=== PATIENT | male | born 1935 | race Caucasian/White ===

== ENCOUNTER 2016-08-28 13:51 | Day surgery (SDC) | payer OTHER ==
[~2016-08-28 13:51] MED LIST: BUPIVACAINE/EPI 0.5% 30 ML SDV ONE
[2016-08-28] MEDS ORDERED: LIDOCAINE 1% 5 ML SDV ID PRN (14:03)
[2016-08-28] MEDS ORDERED: LR 1,000 ML IV ONE (14:03)
[2016-08-28] MEDS ORDERED: ceFAZolin 2 GM/DEXTROSE 100 ML IV ONE (14:30)
[2016-08-28] MEDS ORDERED: ACETAMINOPHEN 500 MG TAB PO ONE (14:30)
[2016-08-28] MEDS ORDERED: MIDAZOLAM 2 MG/2 ML VIAL ONE (16:12)
[2016-08-28] MEDS ORDERED: fentaNYL 250 MCG/5 ML INJ ONE (16:20)
[2016-08-28] MEDS ORDERED: PROPOFOL 200 MG/20 ML VIAL ONE (16:20)
[2016-08-28] MEDS ORDERED: LIDOCAINE 2% 5 ML SDV ONE (16:22)
[2016-08-28] MEDS ORDERED: LIDOCAINE 2% JELLY 5 ML TUBE ONE (16:22)
[2016-08-28] MEDS ORDERED: DEXAMETHASONE 4 MG/ML VIAL ONE (16:23)
[2016-08-28] MEDS ORDERED: ONDANSETRON 4 MG/2 ML VIAL ONE (16:23)
[2016-08-28] MEDS ORDERED: PETROLAT,WHT/MIN OIL/SOD CHL 3.5 GM OPHT.OINT ONE (16:47)
--- NOTE | 2016-08-28 19:19 | GOP ---
[f rep st] OPERATIVE REPORT DATE OF OPERATION: 08/28/2016 SURGEON: Kylie Nino MD ANESTHESIA: By LMA. PREOPERATIVE DIAGNOSIS: Left lateral meniscal tear. POSTOPERATIVE DIAGNOSIS: Left lateral meniscal tear with medial meniscal tear and grade 2-3 chondra l changes noted to all 3 compartments. PROCEDURE PERFORMED: Left knee arthroscopy with partial medial and partial lateral meniscectomies, chondroplasty of all 3 compartments. FINDINGS: INDICATIONS: This is an 81-year-old very active male, who has developed increasing pain in the left knee despite conservative measures. MRI exam reveals a fragmented, fibrillated tear of the lateral meniscus. He wishes to have surgery in order to resolve the problem. DESCRIPTION OF PROCEDURE: Patient brought to the operating room after the left side had been identi fied as the correct side by the patient, nurse, and physician. Once in the operating room, he was p laced under general anesthesia using LMA. Once asleep, a tourniquet placed around the upper portion of the left thigh, and both legs were placed in the appropriate leg eddy. The left lower extremi ty was then sterilely prepped and draped in the usual fashion using GSI solution. Once prepped and draped, limb was exsanguinated, tourniquet inflated to 250 mmHg. Incision was made in the superomedial portion of the knee with an inflow trocar introduced without d ifficulty. A second incision was made lateral to the patellar tendon between the inferior pole of t he patella and tibial plateau with the camera introduced without difficulty. Inspection of the joint revealed no loose bodies in the suprapatellar pouch, and the medial and late ral gutter. There was abundant amount of synovium in the anterior portion of the knee and into the medial and lateral gutter. There were grade 2-3 chondral changes noted of the patella and the troch ryan. Further inspection revealed the ACL ligament to be intact. Inspecting the medial compartment revealed a small tear of the anterior horn of the medial meniscus and the posterior horn of the medi al meniscus with some minor grade 2 chondral changes noted. Inspection of the lateral compartment r evealed a tear of the anterior horn of the lateral meniscus along with a large fragmented tear of th e posterior horn and body of the lateral meniscus with some grade 3 chondral changes noted to the la teral compartment. Therefore, a third incision was made medial to the patellar tendon between the inferior pole of the patella and tibial plateau. Then, alternating using the straight biter and a 4.5 mm smooth shaver w as used to debride both tears in the medial and lateral meniscus, remove the chondral changes noted in all 3 compartments. The abundant amount of synovium in the anterior portion of the knee and the medial and lateral gutter was also removed, in addition to the suprapatellar pouch. Once completed, all instruments were removed from the knee with 30 cc of Marcaine infused in the kne e joint. The 3 portal sites were closed using 3-0 nylon suture in a [id number] type stitch. T he wounds were dressed with Xeroform, 4x4, and Webril. Tourniquet was deflated at 34 minutes. Leg was completely undraped in the operating room, was taken out of its leg eddy, tourniquet removed f rom the thigh, and an Dwight wrap placed around the knee. The right leg was taken out of its leg holde r. He was placed supine. He was woken up, extubated, transferred onto a stretcher, and sent to recover y room in good condition. TOURNIQUET TIME: 34 minutes. /[id number]/MODL
== END 2016-08-28 19:00 | disposition home or self-care (01) ==
LOC: FSGY 13:51
PROVIDERS: ATTEND Orthopaedic Surgery
PROC: 0SBD4ZZ Excision of Left Knee Joint, Percutaneous Endoscopic Approach (ICD-10-PCS; principal; 2016-08-28 15:30)
DX: M23.222 Derangement of posterior horn of medial meniscus due to old tear or injury, left knee (principal); M23.252 Derangement of posterior horn of lateral meniscus due to old tear or injury, left knee; M23.212 Derangement of anterior horn of medial meniscus due to old tear or injury, left knee; M23.242 Derangement of anterior horn of lateral meniscus due to old tear or injury, left knee; M25.562 Pain in left knee; M65.9 Synovitis and tenosynovitis, unspecified; M24.10 Other articular cartilage disorders, unspecified site; I49.9 Cardiac arrhythmia, unspecified; K21.9 Gastro-esophageal reflux disease without esophagitis; E78.5 Hyperlipidemia, unspecified; I10 Essential (primary) hypertension; M10.9 Gout, unspecified; F43.10 Post-traumatic stress disorder, unspecified; G62.9 Polyneuropathy, unspecified; Z85.46 Personal history of malignant neoplasm of prostate; Z85.51 Personal history of malignant neoplasm of bladder; Z79.899 Other long term (current) drug therapy
CPT/HCPCS: J0690; J1100; J2250; J2405; J2704; J3010

== ENCOUNTER → 2017-04-01 | Outpatient (CLI) | payer OTHER | LOC: BHFA 14:00 | PROVIDERS: ATTEND Internal Medicine Interventional Cardiology | DX: R00.1 Bradycardia, unspecified (principal) | CPT/HCPCS: 78452; 93017; A9500 ==

== ENCOUNTER 2017-10-09 12:16 | Day surgery (SDC) | payer OTHER ==
[2017-10-09] MEDS ORDERED: IOPAMIDOL (ISOVUE-M 300) 15 ML VIAL ONE (13:17)
[2017-10-09] MEDS ORDERED: DEXAMETHASONE 10 MG/ML VIAL ONE (13:17)
== END 2017-10-09 14:24 | disposition home or self-care (01) ==
LOC: FIMAGING 12:16
PROVIDERS: ATTEND Family Medicine
PROC: 3E0R33Z Introduction of Anti-inflammatory into Spinal Canal, Percutaneous Approach (ICD-10-PCS; principal; 2017-10-09)
PROC: 3E0R3BZ Introduction of Anesthetic Agent into Spinal Canal, Percutaneous Approach (ICD-10-PCS; principal; 2017-10-09)
DX: M54.16 Radiculopathy, lumbar region (principal); M54.41 Lumbago with sciatica, right side; M48.061 Spinal stenosis, lumbar region without neurogenic claudication; M50.30 Other cervical disc degeneration, unspecified cervical region
CPT/HCPCS: J1100; Q9967

== ENCOUNTER 2018-03-22 05:16 | Emergency (ER) | payer OTHER ==
[2018-03-22] MEDS ORDERED: ACETAMINOPHEN 500 MG TAB PO ONE (05:38)
--- NOTE | 2018-03-22 05:41 | EDPHY ---
H & P Stated Complaint: SOB/SOLER/COUGH/CONGESTION/CHEST TIGHTNESS X 1 DAY Time Seen by Provider: 03/22/18 05:29 HPI/ROS: 83-year-old male presents complaining of nasal congestion, postnasal drip, chest tightness, cough that have worsened over the last 2 days. He has not taken anything for his symptoms. No nausea, vomiting or diarrhea. Review of systems As per HPI General no fever no chills no weakness HEENT no eye pain no eye discharge. No eye redness, no sore throat, positive URI /nasal congestion symptoms Respiratory positive cough , no shortness of breath Cardiac no chest pain, no peripheral edema GI no abdominal pain, no diarrhea, no constipation, no nausea, no vomiting no flank pain, no hematuria, no dysuria Musculoskeletal positive myalgias, no joint pain Heme no easy bruising, no easy bleeding Endo no polyuria, no polydipsia Skin no rashes, no pruritus Neuro no syncope, no dizziness, no headaches Psych is no suicidal ideation, no homicidal ideation Source: Patient Exam Limitations: Physical impairment - Personal History Current Tetanus Diphtheria and Acellular Pertussis (TDAP): Yes Tetanus Vaccine Date: unsure - Medical/Surgical History Hx Asthma: No Hx Chronic Respiratory Disease: No Hx Diabetes: No Hx Cardiac Disease: Yes Hx Renal Disease: No Hx Cirrhosis: No Hx Alcoholism: No Hx HIV/AIDS: No Hx Splenectomy or Spleen Trauma: No Other PMH: bladder cancer, and prostate cancer, prostatectomy, appendectomy, hard of hearing, tonsillectomy, hernia, bradycardia, HTN - Family History Significant Family History: No pertinent family hx - Social History Smoking Status: Never smoked Alcohol Use: None Drug Use: None - Physical Exam Exam: 83-year-old male, hard of hearing Alert and oriented nontoxic appearance, no acute distress afebrile Atraumatic normocephalic Extraocular muscles intact, anicteric Nares mild yellowish discharge Oropharynx mild erythema no tonsillar swelling no exudate no uvular deviation, tolerating own secretions Neck supple no lymphadenopathy Lungs clear to auscultation bilaterally Heart regular rate and rhythm Abdomen normoactive bowel sounds soft nontender Extremities no cyanosis clubbing or edema Skin no rash Constitutional: Initial Vital Signs Temperature (C) 36.5 C 03/22/18 05:19 Heart Rate 62 03/22/18 05:19 Respiratory Rate 18 03/22/18 05:19 Blood Pressure 164/107 H 03/22/18 05:19 O2 Sat (%) 94 03/22/18 05:19 O2 Delivery Mode Room Air Allergies/Adverse Reactions: iodine [Iodine] Allergy (Verified 03/22/18 05:19) morphine [Morphine] Allergy (Verified 03/22/18 05:19) IV Contrast Allergy (Uncoded 03/22/18 05:19) Home Medications: Medication Instructions Recorded Gabapentin 300 mg PO TID 05/12/16 Lisinopril 40 mg PO DAILY06 05/12/16 Norvasc 2.5 mg (*) 5 mg PO 06 05/12/16 ACETAMINOPHEN 08/27/16 Atorvastatin Calcium [Lipitor 10 03/22/18 mg (*)] Calcium Carbonate [Calcium] 03/22/18 Donepezil HCl 5 mg PO 03/22/18 Ergocalciferol [Ergocalciferol VIT 03/22/18 D2 8000 UNIT/ML (*)] Melatonin [Melatonin 5 mg] 03/22/18 Medical Decision Making ED Course/Re-evaluation: The patient seen and evaluated for cough, nasal congestion, muscle aches. EKG normal sinus rhythm, no ischemic changes Chest x-ray no dense consolidation, final reading pending Labs CBC pending Lactic acid normal CMP within normal limits Influenza negative Patient given Tylenol 1 g, ibuprofen 600 mg and a DuoNeb. Appears markedly more comfortable. Impression Bronchitis, nasal congestion Plan Discharge home At this time CBC is pending will recontact patient if abnormal. Follow-up with Dr. Foreman this week in 1-2 days Recommend rest, fluids, Mucinex, humidifier in room. Differential Diagnosis: Differential diagnosis considered but not limited to URI, nasal congestion, bronchitis, pneumonia, pneumothorax, myocardial infarction, sinusitis, sinus congestion - Data Points Laboratory Results: 03/22/18 03/22/18 03/22/18 05:53 05:44 05:44 WBC RBC Hgb Hct MCV MCH MCHC RDW Plt Count MPV Neut % (Auto) Lymph % (Auto) [place] % (Auto) Eos % (Auto) Baso % (Auto) Nucleat RBC Rel Count Absolute Neuts (auto) Absolute Lymphs (auto) Absolute Monos (auto) Absolute Eos (auto) Absolute Basos (auto) Absolute Nucleated RBC Immature Gran % Immature Gran # POC Sodium 139 mEq/L mEq/L (135-145) POC Potassium 4.3 mEq/L mEq/L (3.3-5.0) POC Chloride 110.0 mEq/L mEq/L (97-110) POC Total CO2 29 mEq/L mEq/L (22-31) POC BUN 13 mg/dL mg/dL (7-23) POC Creatinine 1.3 mg/dL mg/dL (0.7-1.3) POC Glucose 102 mg/dL H mg/dL (70-100) POC Lactic Acid Srinath 1.0 mmol/L mmol/L (0.7-2.1) POC Calcium 8.9 mg/dL mg/dL (8.5-10.4) POC Total Bilirubin 0.9 mg/dL mg/dL (0.1-1.4) POC AST 23 IU/L IU/L (17-59) POC ALT 18 IU/L L IU/L (21-72) POC Alk Phosphatase 81 IU/L IU/L (38-126) POC Troponin I 0.00 ng/mL ng/mL (0.00-0.08) POC Total Protein 6.9 g/dL g/dL (6.3-8.2) POC Albumin 3.9 g/dL g/dL (3.5-5.0) 03/22/18 05:30 WBC Pending RBC Pending Hgb Pending Hct Pending MCV Pending MCH Pending MCHC Pending RDW Pending Plt Count Pending MPV Pending Neut % (Auto) Pending Lymph % (Auto) Pending [place] % (Auto) Pending Eos % (Auto) Pending Baso % (Auto) Pending Nucleat RBC Rel Count Pending Absolute Neuts (auto) Pending Absolute Lymphs (auto) Pending Absolute Monos (auto) Pending Absolute Eos (auto) Pending Absolute Basos (auto) Pending Absolute Nucleated RBC Pending Immature Gran % Pending Immature Gran # Pending POC Sodium POC Potassium POC Chloride POC Total CO2 POC BUN POC Creatinine POC Glucose POC Lactic Acid Srinath POC Calcium POC Total Bilirubin POC AST POC ALT POC Alk Phosphatase POC Troponin I POC Total Protein POC Albumin Medications Given: Discontinued Medications Acetaminophen (Tylenol) 1,000 mg PO EDNOW ONE Stop: 03/22/18 05:39 Last Admin: 03/22/18 05:42 Dose: 1,000 mg Albuterol/Ipratropium (Duoneb) 3 ml IH EDNOW ONE Stop: 03/22/18 06:05 Last Admin: 03/22/18 06:09 Dose: 3 ml Ibuprofen (Motrin) 600 mg PO EDNOW ONE Stop: 03/22/18 06:05 Last Admin: 03/22/18 06:09 Dose: 600 mg Point of Care Test Results: Chemistry 03/22/18 03/22/18 05:44 05:44 POC Sodium 139 mEq/L mEq/L (135-145) POC Potassium 4.3 mEq/L mEq/L (3.3-5.0) POC Chloride 110.0 mEq/L mEq/L (97-110) POC Total CO2 29 mEq/L mEq/L (22-31) POC BUN 13 mg/dL mg/dL (7-23) POC Creatinine 1.3 mg/dL mg/dL (0.7-1.3) POC Glucose 102 mg/dL H mg/dL (70-100) POC Calcium 8.9 mg/dL mg/dL (8.5-10.4) POC Total Bilirubin 0.9 mg/dL mg/dL (0.1-1.4) POC AST 23 IU/L IU/L (17-59) POC ALT 18 IU/L L IU/L (21-72) POC Alk Phosphatase 81 IU/L IU/L (38-126) POC Troponin I 0.00 ng/mL ng/mL (0.00-0.08) POC Total Protein 6.9 g/dL g/dL (6.3-8.2) POC Albumin 3.9 g/dL g/dL (3.5-5.0) Blood Gas/Lactic Acid-Venous 03/22/18 05:53 POC Lactic Acid Srinath 1.0 mmol/L mmol/L (0.7-2.1) Influenza PCR Flu Nasal Swab Collection Date 03/22/18 Flu Nasal Swab Collection Time 05:50 Influenza A Result Not Detected Influenza B Result Not Detected Departure - Departure Disposition: Home, Routine, Self-Care Clinical Impression: Bronchitis Condition: Good Instructions: Acute Bronchitis (ED), Rhinosinusitis (ED) Additional Instructions: rest drink plenty of fluids acetaminophen(tylenol) every 6 hours as needed for pain or fever may try and over the counter cough syurp or decongestant for symtoms See Dr Foreman in the next 1-2 days for follow up Return to Emergency if you are worsening Referrals: Patient,NotPresent [Primary Care Provider] - As per Instructions
[2018-03-22] MEDS ORDERED: IPRATROPIUM/ALBUTEROL 3 ML DEYVIAL IH ONE (06:04)
[2018-03-22] MEDS ORDERED: IBUPROFEN 600 MG TAB PO ONE (06:04)
[2018-03-22 07:00] VITALS: BP 131/79
[2018-03-22 07:01] LABS: PLATELET COUNT 157 10^3/uL (150-400)
== END 2018-03-22 07:18 | disposition home or self-care (01) ==
LOC: CED 05:16
DX: J20.9 Acute bronchitis, unspecified (principal); J01.90 Acute sinusitis, unspecified; I10 Essential (primary) hypertension; R00.1 Bradycardia, unspecified; Z85.46 Personal history of malignant neoplasm of prostate; Z85.51 Personal history of malignant neoplasm of bladder
CPT/HCPCS: 71046-PO; 80053-PO; 83605-PO; 84484-PO

== ENCOUNTER 2018-09-06 12:10 | Day surgery (SDC) | payer OTHER ==
[2018-09-06] MEDS ORDERED: IOPAMIDOL (ISOVUE-M 300) 15 ML VIAL ONE (13:57)
[2018-09-06] MEDS ORDERED: TRIAMCINOLONE ACETONIDE 200 MG/5 ML MDV IM ONE (13:57)
== END 2018-09-06 13:41 | disposition home or self-care (01) ==
LOC: FIMAGING 12:10
PROVIDERS: ATTEND Family Medicine
DX: M54.41 Lumbago with sciatica, right side (principal)
CPT/HCPCS: J3301; Q9967

== ENCOUNTER → 2018-11-26 | Day surgery (SDC) | payer OTHER ==
[~2018-11-26] MED LIST changes: -BUPIVACAINE/EPI 0.5% 30 ML SDV ONE; +IOPAMIDOL (ISOVUE-M 300) 15 ML VIAL ONE; +LIDOCAINE 1% 300 MG/30 ML SDV ONE; +TRIAMCINOLONE ACETONIDE 200 MG/5 ML MDV IM ONE
== END | disposition home or self-care (01) ==
LOC: FIMAGING 12:42
PROVIDERS: ATTEND Radiology Vascular & Interventional Radiology
DX: M54.16 Radiculopathy, lumbar region (principal); M54.41 Lumbago with sciatica, right side
CPT/HCPCS: J3301; Q9967